=== PATIENT | male | born 1960 | race Caucasian/White ===

== ENCOUNTER 2020-09-18 16:56 | Inpatient (IN) | payer OTHER ==
[~2020-09-18] VITALS: Ht 177.8 cm; Wt 67.7 kg
[2020-09-18 17:00] VITALS: BP 97/65
[2020-09-18 18:03] LABS: BE(vivo) -4.8 mmol/L (-2 to +3); HCO3 17.9 mmol/L (22.0-26.0); PCO2 27.7 mmHg (35.0-45.0); PO2 75.4 mmHg (80.0-100.0); pH 7.428 (7.360-7.450); sO2 95.7 % (92.0-98.0)
[2020-09-18 18:11] LABS: HEMATOCRIT 42.6 % (42.0-52.0); HEMOGLOBIN 14.6 gm/dL (14.0-18.0); MCHC 34.2 g/dL (28.0-37.0); MCV 87.7 fL (80.0-100.0); PLATELET COUNT 442 thou/uL (150-400); RBC 4.86 mil/uL (4.50-6.00); WBC 11.1 thou/uL (4.0-11.0)
[2020-09-18 18:24] LABS: CALCIUM 8.9 mg/dL (8.5-10.1); CREATININE 1.1 mg/dL (0.7-1.3); POTASSIUM 3.7 mmol/L (3.5-5.1)
[2020-09-18 18:34] LABS: ALBUMIN 2.6 g/dL (3.4-5.0); TOTAL BILIRUBIN 0.4 mg/dL (0.2-1.0); TROPONIN-I 0.06 ng/mL (<0.06)
[2020-09-18 19:14] LABS: ABSOLUTE NEUTROPHILS 9.4 thou/uL (1.4-8.2)
[2020-09-18 19:15] LABS: ANISOCYTOSIS SLIGHT; POLYCHROMASIA SLIGHT
[2020-09-18] MEDS ORDERED: MORPHINE SULFAT30 M1 PO (21:12)
[2020-09-18] MEDS ORDERED: OXYCODONE HCL10 MG PO (21:13)
[2020-09-18 21:23] VITALS: BP 109/91
[2020-09-18 21:53] VITALS: BP 123/92
[2020-09-18] MEDS ORDERED: LIDOCAINE VISC100 ML PO (23:06)
[2020-09-18] MEDS ORDERED: MS CONTIN 30 MG30 M1 PO (23:07)
[2020-09-19 03:09] VITALS: BP 128/82
--- NOTE | 2020-09-19 04:20 | NUR ---
PT ARRIVED VIA CART FROM ER AND AMBULATES AD JORDAN. VSS OVERNIGHT. ADMISSION, INTERVENTIONS, CARE PLAN, AND MED REC COMPLETED. FOLLOWING ESTABLISHED POC WITH IVF, IVPB ANTIBIOTICS AND PAIN MANAGEMENT. CONSULT FOR PULMONARY WILL BE CALLED IN THIS AM. ENHANCE PRECAUTIONS BEING OBSERVED PT IS PUI.
[2020-09-19 05:10] LABS: HEMATOCRIT 39.6 % (42.0-52.0); HEMOGLOBIN 13.3 gm/dL (14.0-18.0); MCH 29.9 pg (26.0-34.0); MCHC 33.7 g/dL (28.0-37.0); MCV 88.8 fL (80.0-100.0); RBC 4.45 mil/uL (4.50-6.00); RDW 14.3 % (10.5-14.5); WBC 9.1 thou/uL (4.0-11.0)
[2020-09-19 05:46] LABS: ANION GAP 8 mmol/L (7-16); BUN 16 mg/dL (7-18); CALCIUM 8.9 mg/dL (8.5-10.1); CHLORIDE 101 mmol/L (98-107); CO2 25 mmol/L (21-32); CREATININE 0.9 mg/dL (0.7-1.3); GLUCOSE 157 mg/dL (74-106); SODIUM 134 mmol/L (136-145); TROPONIN-I <0.06 ng/mL (<0.06)
--- NOTE | 2020-09-19 07:02 | EKG ---
[place] [address] [address] [facility] [place] [address] ELECTROCARDIOGRAM REPORT Name: WARNINGKATARZYNA Room #: 349-I ADM IN M.R.#: [id number] Admission: 09/18/20 Attend Phys: Angel Carmen MD Discharge: Date of : 64 Report #: [id number] [facility] ED Test Date: 2020-09-18 Test Time: 18:07:48 Pat Name: KATARZYNA WALSH Department: Room: 349 Gender: M [place]: : 1960 Requested By: Sukhjinder Couch Order Number: [id number] MD: Paco Lennon Measurements Intervals [place] Rate: 100 P: 76 IL: 137 QRS: 87 QRSD: 91 T: 74 QT: 404 QTc: 522 Interpretive Statements Sinus tachycardia Left atrial enlargement [place] R wave prgression V1-3 Prolonged QT interval Baseline wander in lead(s) V6 No previous ECG available for comparison Electronically Signed On 09-19-2020 7:02:09 CDT by Paco Lennon [email or web address] <ELECTRONICALLY SIGNED> By: Paco Lennon MD, [facility] 09/19/20701 06 06 Paco Lennon MD, FACC /EPI
[2020-09-19 07:40] VITALS: BP 131/74
[2020-09-19 10:33] LABS: URINE BILIRUBIN NEGATIVE (Negative); URINE BLOOD NEGATIVE (Negative); URINE CLARITY CLEAR; URINE COLOR YELLOW; URINE GLUCOSE-RANDOM* NEGATIVE (Negative); URINE KETONES NEGATIVE (Negative); URINE LEUKOCYTES NEGATIVE (Negative); URINE NITRITE NEGATIVE (Negative); URINE PROTEIN (DIPSTICK) TRACE (Negative); URINE SPECIFIC GRAVITY 1.025 (1.005-1.035); URINE UROBILINOGEN 0.2 E.U./dl (0.2-1.0)
[2020-09-19 11:12] LABS: APTT 30.5 Seconds (24.5-32.8); INR 1.04; PROTIME 11.3 Seconds (9.3-11.4)
[2020-09-19 12:25] LABS: COLOR RED; SOURCE THORACENTESIS; TOTAL VOLUME 50 mL
[2020-09-19 12:26] LABS: CLARITY CLOUDY
[2020-09-19 13:04] LABS: BF NUCLEATED CELLS 1962 /mm3
--- NOTE | 2020-09-19 14:07 | NUR ---
Met with patient who admits with SOA, resp distress. Patient rec thoracenthesis today. Has stage 4 throut cancer. Oncologist at [facility]. Patient rec disability. Patient reports lives with mother. He is independent with all adls. No hx of DME. Patient on oxygen reports he does not use at home. He reports post procedure he feesl so much better. He feels he can breathe much better. Patients covid test at hospital negative. Plan home independently. Casemgt following.
[2020-09-19 14:57] LABS: BF MACROPHAGE 24 %; BF NEUTROPHILS 61 %
[2020-09-19 15:47] VITALS: BP 141/88
--- NOTE | 2020-09-19 16:21 | NUR ---
ASSUMED PATIENT CARE AT 0700. A/O X4. HAD RIGHT THORACENTESIS IN NOON . PATIENT STATE BREATHING MUCH BETTER. NOTED PATIENT MISSING IN ROOM AT 1610. RN CALLED PATIENT PHOINE THAT HE SAID HE IS AT FRONT OF HOSPITAL TO GET FRESH AIR. RN ASKING PATIENT BACK. NOTED PATIENT BACK TO UNIT WITH SECURITY AND VERY AGITATED. WANT SIGN AMA GO HOME. DR LOWE NOTIFIED. PATIENT LEFT AT 1620 AMA.
[2020-09-20 18:06] LABS: BODY FLUID ALBUMIN 2.7 g/dL (Not Estab.); BODY FLUID PROTEIN 4.4 g/dL (())
== END 2020-09-19 16:25 | disposition left against medical advice (07) | DRG 193 ==
LOC: ER 16:56 → EROBS 20:43 → 3W 20:43
PROVIDERS: Emergency Medicine; Hospitalist; Nurse Practitioner Family; ADMIT Hospitalist; ATTEND Hospitalist
PROC: 0W993ZZ Drainage of Right Pleural Cavity, Percutaneous Approach (ICD-10-PCS; principal; 2020-09-19)
DX: J18.9 Pneumonia, unspecified organism (principal); J96.01 Acute respiratory failure with hypoxia; R65.10 Systemic inflammatory response syndrome (SIRS) of non-infectious origin without acute organ dysfunction; J91.8 Pleural effusion in other conditions classified elsewhere; R91.8 Other nonspecific abnormal finding of lung field; Z53.29 Procedure and treatment not carried out because of patient's decision for other reasons; Z85.118 Personal history of other malignant neoplasm of bronchus and lung; Z85.819 Personal history of malignant neoplasm of unspecified site of lip, oral cavity, and pharynx; Z88.1 Allergy status to other antibiotic agents; Z92.21 Personal history of antineoplastic chemotherapy; Z87.891 Personal history of nicotine dependence; Z71.6 Tobacco abuse counseling; Z92.3 Personal history of irradiation; Z20.822 Contact with and (suspected) exposure to COVID-19
CPT/HCPCS: 10879